=== PATIENT | male | born 1930 | race Caucasian/White ===

== ENCOUNTER 2021-10-01 16:15 | Inpatient (IN) | payer OTHER ==
[~2021-10-01] VITALS: Ht 170.2 cm; Wt 51.9 kg
[2021-10-01] MEDS ORDERED: CYCLOBENZAPRINE5 MG PO (20:40)
[2021-10-01] MEDS ORDERED: ALBUTEROL2.5 MG/3 M INH (20:41)
[2021-10-01] MEDS ORDERED: HYDROCODON-ACE1 EAC6 PO (20:43)
[2021-10-01] MEDS ORDERED: IBUPROFEN600 MG PO (20:44)
[2021-10-01] MEDS ORDERED: PLAVIX 75 MG TA75 MG PO (20:45)
[2021-10-01] MEDS ORDERED: LYRICA75 MG PO ×2 (20:46)
[2021-10-01] MEDS ORDERED: MUCINEX600 MG PO (20:47)
[2021-10-01] MEDS ORDERED: CYPROHEPTADINE H4 MG PO (20:47)
[2021-10-01] MEDS ORDERED: VITAMIN D325 MCG PO (20:49)
[2021-10-01] MEDS ORDERED: TRAZODONE HCL50 MG PO (20:49)
[2021-10-02 09:55] LABS: HEMOGLOBIN 12.2 gm/dl (14.0-17.5); RED BLOOD COUNT 3.93 M/UL (4.20-5.50); WHITE BLOOD COUNT 21.2 K/UL (4.5-11.0)
[2021-10-02 10:20] LABS: BUN/CREATININE RATIO 21 (0-10)
[2021-10-02] MEDS ORDERED: ZYRTEC10 MG PO (14:32)
[2021-10-02] MEDS ORDERED: LIPITOR TAB 1010 MG PO (20:46)
[2021-10-02] MEDS ORDERED: ASPIRIN EC81 MG PO (20:47)
[2021-10-02] MEDS ORDERED: NORVASC10 MG PO (20:49)
[2021-10-03 10:39] LABS: WHITE BLOOD COUNT 17.2 K/UL (4.5-11.0)
[2021-10-03 10:40] LABS: HEMOGLOBIN 9.2 gm/dl (14.0-17.5); RED BLOOD COUNT 3.09 M/UL (4.20-5.50)
[2021-10-03 11:06] LABS: BUN/CREATININE RATIO 28 (0-10)
[2021-10-04 08:00] LABS: HEMOGLOBIN 8.9 gm/dl (14.0-17.5); RED BLOOD COUNT 3.04 M/UL (4.20-5.50); WHITE BLOOD COUNT 14.4 K/UL (4.5-11.0)
[2021-10-04 08:06] LABS: BUN/CREATININE RATIO 34 (0-10)
[2021-10-04 15:01] LABS: HEMOGLOBIN 8.8 gm/dl (14.0-17.5); RED BLOOD COUNT 3.04 M/UL (4.20-5.50); WHITE BLOOD COUNT 15.1 K/UL (4.5-11.0)
[2021-10-05 07:45] LABS: HEMOGLOBIN 9.7 gm/dl (14.0-17.5); RED BLOOD COUNT 3.28 M/UL (4.20-5.50)
[2021-10-05 07:55] LABS: BUN/CREATININE RATIO 26 (0-10)
[2021-10-05] MEDS ORDERED: ROXICODONE TAB 55 MG PO (09:41)
[2021-10-05] MEDS ORDERED: ENOXAPARIN40 MG/0.4 SC (09:48)
[2021-10-05] MEDS ORDERED: KEFLEX CAP 250250 MG PO (09:50)
== END 2021-10-05 20:38 | DRG 480 ==
LOC: M/S 19:16
PROVIDERS: Internal Medicine; Orthopaedic Surgery; Physician Assistant; ADMIT Internal Medicine
PROC: 0QS706Z Reposition Left Upper Femur with Intramedullary Internal Fixation Device, Open Approach (ICD-10-PCS; principal; 2021-10-02 12:27)
DX: S72.142A Displaced intertrochanteric fracture of left femur, initial encounter for closed fracture (principal); E43 Unspecified severe protein-calorie malnutrition; G93.41 Metabolic encephalopathy; J18.9 Pneumonia, unspecified organism; D62 Acute posthemorrhagic anemia; N30.00 Acute cystitis without hematuria; R64 Cachexia; Z68.1 Body mass index [BMI] 19.9 or less, adult; W01.0XXA Fall on same level from slipping, tripping and stumbling without subsequent striking against object, initial encounter; I10 Essential (primary) hypertension; Z20.822 Contact with and (suspected) exposure to COVID-19; D72.829 Elevated white blood cell count, unspecified; I25.10 Atherosclerotic heart disease of native coronary artery without angina pectoris; R82.90 Unspecified abnormal findings in urine; H53.60 Unspecified night blindness; I73.9 Peripheral vascular disease, unspecified; E66.01 Morbid (severe) obesity due to excess calories; F41.9 Anxiety disorder, unspecified; E78.5 Hyperlipidemia, unspecified; Y92.89 Other specified places as the place of occurrence of the external cause; Z86.73 Personal history of transient ischemic attack (TIA), and cerebral infarction without residual deficits; Y99.8 Other external cause status; Z85.828 Personal history of other malignant neoplasm of skin; Z95.1 Presence of aortocoronary bypass graft; Z79.82 Long term (current) use of aspirin; Z79.899 Other long term (current) drug therapy; Z79.52 Long term (current) use of systemic steroids
CPT/HCPCS: 36415; 71045; 73502; 76000; 80048; 80053; 81001; 85025; 85610; 85730; 86850; 86900; 86901; 87086; 93005; 97110; 97110-GP-CQ; 97161; 97166; 97530; 97530-GP-CQ; C1713; J0692; J1100; J1650; J2001; J2270; J2405; J2704; J3010; J7120; U0002